=== PATIENT | male | born 1970 | race African-American/Black ===

== ENCOUNTER 2022-05-19 23:21 | Emergency (ER) | payer OTHER ==
[~2022-05-19] VITALS: Ht 175.3 cm; Wt 82.1 kg
[2022-05-20 04:30] VITALS: BP 100/70
[2022-05-20 04:47] LABS: Urine Bacteria NONE SEEN /hpf (None Seen); Urine Blood Negative /uL (Negative); Urine Hyaline Cast FEW /lpf (0 - 2); Urine Mucus FEW (None Seen); Urine Specific Gravity 1.031 (1.001-1.035); Urine WBC 6 /hpf (0 - 3)
[2022-05-20 04:55] LABS: Basophils # (auto) 0 10 ^3/uL (0-0.2); Basophils % (auto) 0.7 % (0.0-2.0); Eosinophils # (auto) 0 10 ^3/uL (0-0.8); Eosinophils % (auto) 0.6 % (0.0-7.0); Hematocrit 35.4 % (41.0-53.0); Hemoglobin 11.9 g/dL (13.5-17.5); Lymphocytes # (auto) 1.8 10 ^3/uL (0.4-5.4); Lymphocytes % (auto) 33.4 % (10.0-50.0); Mean Corpuscular Hemoglobin 30.7 pg (28.0-32.0); Mean Corpuscular Hgb Conc. 33.7 g/dL (32.0-36.0); Monocytes # (auto) 0.5 10 ^3/uL (0-1.3); Monocytes % (auto) 10.1 % (0.0-12.0); Neutrophils # (auto) 2.9 10 ^3/uL (1.6-8.6); Neutrophils % (auto) 55.2 % (37.0-80.0); Nucleated Red Blood Cells % 0.1 %; Red Blood Cells 3.89 10^6/uL (4.5-5.90); Red Cell Distribution Width 14.9 % (11.8-14.3); White Blood Cell 5.3 10^3/uL (4.4-10.8)
[2022-05-20 04:58] LABS: Alcohol, Urine < 3.0 mg/dL (0-10); Amphetamine Screen, Urine POSITIVE (NEGATIVE); Barbiturate Scree,Urine NEGATIVE (NEGATIVE); Benzodiazephine Screen, Urine NEGATIVE (NEGATIVE); Cocaine Screen, Urine NEGATIVE (NEGATIVE); Opiate Scree,Urine NEGATIVE (NEGATIVE)
[2022-05-20 05:06] LABS: Cannabinoid Screen, Urine POSITIVE (NEGATIVE); Phencyclidine Screen, Urine NEGATIVE (NEGATIVE)
== END 2022-05-20 05:14 | disposition home or self-care (01) ==
LOC: ER 23:21
DX: S06.899A Other specified intracranial injury with loss of consciousness of unspecified duration, initial encounter (principal); S00.81XA Abrasion of other part of head, initial encounter; Y04.2XXA Assault by strike against or bumped into by another person, initial encounter; Y93.89 Activity, other specified; Y92.89 Other specified places as the place of occurrence of the external cause; Y99.8 Other external cause status
CPT/HCPCS: 36415; 70450; 70480; 71045; 72125; 80307; 81001; 82140; 84484; 85025

== ENCOUNTER 2022-06-21 06:23 | Emergency (ER) | payer OTHER ==
[~2022-06-21] VITALS: Ht 175.3 cm; Wt 73.0 kg
[2022-06-21 07:52] LABS: Basophils # (auto) 0 10 ^3/uL (0-0.2); Basophils % (auto) 1.2 % (0.0-2.0); Eosinophils # (auto) 0.1 10 ^3/uL (0-0.8); Hematocrit 35.3 % (41.0-53.0); Hemoglobin 11.9 g/dL (13.5-17.5); Lymphocytes # (auto) 1.5 10 ^3/uL (0.4-5.4); Lymphocytes % (auto) 43.6 % (10.0-50.0); Mean Corpuscular Hemoglobin 30.6 pg (28.0-32.0); Mean Corpuscular Hgb Conc. 33.7 g/dL (32.0-36.0); Mean Corpuscular Volume 90.7 fL (80.0-100.0); Monocytes # (auto) 0.4 10 ^3/uL (0-1.3); Monocytes % (auto) 10.3 % (0.0-12.0); Neutrophils # (auto) 1.5 10 ^3/uL (1.6-8.6); Neutrophils % (auto) 42.9 % (37.0-80.0); Red Blood Cells 3.89 10^6/uL (4.5-5.90); Red Cell Distribution Width 15.8 % (11.8-14.3); White Blood Cell 3.4 10^3/uL (4.4-10.8)
[2022-06-21 07:53] LABS: Albumin 4.2 g/dL (3.4-5.0); Calcium 8.5 mg/dL (8.5-10.1); Potassium 3.7 mmol/L (3.5-5.1)
[2022-06-21 07:58] LABS: BUN/Creatinine Ratio 5.6; Bilirubin, Total 0.4 mg/dL (0.2-1.0); Total Protein 7.6 g/dL (6.4-8.2)
[2022-06-21 09:49] VITALS: BP 106/69
== END 2022-06-21 09:50 | disposition home or self-care (01) ==
LOC: ER 06:23
DX: R42 Dizziness and giddiness (principal); M54.10 Radiculopathy, site unspecified; E03.9 Hypothyroidism, unspecified; F17.210 Nicotine dependence, cigarettes, uncomplicated
CPT/HCPCS: 36415; 70450; 71045; 80053; 84484; 85025; 93005

== ENCOUNTER → 2022-07-26 | Emergency (ER) | payer OTHER ==
[~2022-07-26] VITALS: Ht 172.7 cm; Wt 85.0 kg
[~2022-07-26] MED LIST: ADENOSINE 6 MG/2 ML INJ IV ONE; DEXTROSE (50%) 50ML SYRG IV ONE; IOHEXOL 300 MG/ML 100ML BOTTLE IJ ONE; ceFAZolin 1GM/50ML 100 ML IV ONE; fentaNYL Drip 2500mCg/250mlNS 250 ML IV SCH
[2022-07-26 22:37] LABS: Hemoglobin 10.8 g/dL (13.5-17.5); Mean Corpuscular Hemoglobin 30.1 pg (28.0-32.0); Mean Corpuscular Hgb Conc. 32.7 g/dL (32.0-36.0); Mean Corpuscular Volume 92.2 fL (80.0-100.0); Red Blood Cells 3.57 10^6/uL (4.5-5.90); Red Cell Distribution Width 15.8 % (11.8-14.3); White Blood Cell 4.7 10^3/uL (4.4-10.8)
[2022-07-26 22:50] LABS: INR 1.21 (0.9-1.15)
[2022-07-26 23:07] VITALS: BP 129/83
[2022-07-27 01:40] LABS: Basophils % (manual) 0 (0.0-2.0); Blast Cells 0; Metamyelocytes % 0; Monocytes % (manual) 0 (0-12); Myelocytes % 0; Promyelocytes % 0
[2022-07-27 02:16] LABS: Alanine Aminotransferase 277 U/L (16-61); Anion Gap 8 (5-15); Aspartate Aminotransferase 273 U/L (15-37); BUN/Creatinine Ratio 6.4; Blood Alcohol < 3.0 mg/dL (0-5); Blood Urea Nitrogen 12 mg/dL (7-18); Calcium 8.3 mg/dL (8.5-10.1); Carbon Dioxide 27 mmol/L (21-32); Chloride 102 mmol/L (98-107); GFR African American 49 mL/min; GFR Non-African American 40 mL/min; Glucose 142 mg/dL (74-106); Sodium 137 mmol/L (136-145)
[2022-07-27 02:19] LABS: Alkaline Phosphatase 49 U/L (45-117); Bilirubin, Total 0.7 mg/dL (0.2-1.0); Total Protein 6.8 g/dL (6.4-8.2)
[2022-07-27 02:20] LABS: Potassium 2.8 mmol/L (3.5-5.1)
[2022-07-27 02:44] LABS: Band Neutrophils % (manual) 1; Eosinophils % (manual) 1 (0-7); Lymphocytes % (manual) 75 (10.0-50.0); Reactive Lymphocytes 3
== END | disposition short-term general hospital (02) ==
LOC: EDUNIT# 21:50 → ER 21:51 → EDBD 21:51
DX: S22.42XA Multiple fractures of ribs, left side, initial encounter for closed fracture (principal); J93.0 Spontaneous tension pneumothorax; I46.9 Cardiac arrest, cause unspecified; E03.9 Hypothyroidism, unspecified; F17.210 Nicotine dependence, cigarettes, uncomplicated; Z88.8 Allergy status to other drugs, medicaments and biological substances; V89.2XXA Person injured in unspecified motor-vehicle accident, traffic, initial encounter; Y93.89 Activity, other specified; Y92.410 Unspecified street and highway as the place of occurrence of the external cause; Y99.8 Other external cause status
CPT/HCPCS: 31500; 32551; 36415; 36430; 71045; 80053; 80320; 84484; 85007; 85025; 85027; 85610; 86850; 86900; 86901; 86920; 92950; 99291; J0153; J7030; J7042; P9016; 83605; 94002